=== PATIENT | female | born 1950 | race Asian ===

== ENCOUNTER 2022-11-29 19:00 | Emergency (ER) | payer OTHER ==
[~2022-11-29] VITALS: Ht 165.1 cm; Wt 84.4 kg
[2022-11-29 19:00] VITALS: TEMP 98.4
[2022-11-29 19:24] LABS: PLATELET COUNT 293 K/uL (152-353)
[2022-11-29 19:34] LABS: POTASSIUM 2.9 mmol/L (3.6-5.2)
[2022-11-29 21:30] VITALS: BP 167/92
[2022-11-30] MEDS ORDERED: CLARITIN10 M1 PO (09:40)
[2022-11-30] MEDS ORDERED: AMLODIPINE BESYLATE PO (09:40)
[2022-11-30] MEDS ORDERED: ZESTRIL40 MG PO (09:42)
[2022-11-30] MEDS ORDERED: ALLERGY RE50 MCG/ACT NAS (09:42)
[2022-11-30] MEDS ORDERED: MELATONIN3 M1 PO (09:43)
[2022-11-30] MEDS ORDERED: AMLODIPINE PO (09:44)
[2022-11-30] MEDS ORDERED: OMEPRAZOLE40 MG PO (09:44)
[2022-11-30] MEDS ORDERED: B-1100 MG PO (09:45)
[2022-11-30] MEDS ORDERED: RISP50IN IM (09:45)
[2022-11-30] MEDS ORDERED: FERROUS SULF325 MG PO (09:46)
[2022-11-30] MEDS ORDERED: HALO5TAB10 PO (09:47)
[2022-11-30] MEDS ORDERED: METO50TA27 PO (09:47)
[2022-11-30] MEDS ORDERED: MELOXICAM7.5 MG PO (09:48)
[2022-11-30] MEDS ORDERED: OXCARBAZEPIN300 MG PO (09:48)
[2022-11-30] MEDS ORDERED: OXCARBAZEPIN600 MG PO (09:50)
[2022-11-30] MEDS ORDERED: OLANZAPINE20 M1 PO (09:51)
[2022-11-30] MEDS ORDERED: ACETAMINOPHEN650 M1 PO (09:53)
[2022-11-30] MEDS ORDERED: HALO5INJ3 IM (09:54)
== END 2022-11-29 21:30 | disposition still patient (30) ==
LOC: ED 19:00
PROVIDERS: Emergency Medicine Emergency Medical Services
DX: R46.89 Other symptoms and signs involving appearance and behavior (principal); R45.1 Restlessness and agitation; E87.6 Hypokalemia; Z11.52 Encounter for screening for COVID-19; Z04.6 Encounter for general psychiatric examination, requested by authority
CPT/HCPCS: 36415; 80053; 85027; 87635; 93005; 99283; U0003